=== PATIENT | male | born 1955 | race Caucasian/White ===

== ENCOUNTER 2020-01-29 10:48 | Emergency (ER) | payer MEDICARE, BC ==
[2020-01-29] MEDS ORDERED: Iopamidol 612 MG/ML 50 ML SDV IVPUSH ONE (10:57)
[2020-01-29] MEDS ORDERED: Iopamidol 612 MG/ML 100 ML Bottle IVPUSH ONE (10:57)
[2020-01-29] MEDS ORDERED: Lactated Ringers 1,000 ML IV ONE (11:03)
[2020-01-29] MEDS ORDERED: Ondansetron 4 MG/2 ML SDV IVPUSH ONE (11:03)
[2020-01-29] MEDS ORDERED: fentaNYL 100 MCG/2 ML SDV IVPUSH ONE ×2 (11:05→12:12)
[2020-01-29] MEDS ORDERED: methylPREDNISolone Sodium Succinate 40 MG/1 ML SDV ONE (11:16)
[2020-01-29] MEDS ORDERED: Famotidine 20 MG/2 ML SDV ONE ×2 (11:16→11:19)
[2020-01-29] MEDS ORDERED: diphenhydrAMINE 50 MG/ML SDV ONE (11:16)
[2020-01-29] MEDS ORDERED: methylPREDNISolone Sodium Succinate 125 MG/2 ML SDV ONE (11:16)
[2020-01-29] MEDS ORDERED: diphenhydrAMINE 50 MG/ML SDV IVPUSH ONE (11:18)
[2020-01-29] MEDS ORDERED: methylPREDNISolone Sodium Succinate 125 MG/2 ML SDV IVPUSH ONE (11:19)
[2020-01-29] MEDS ORDERED: Famotidine 20 MG/2 ML SDV IVPUSH ONE (11:20)
--- NOTE | 2020-01-29 11:59 | CT ---
CT chest Technique: Multiple axial sections were obtained from above the lung apices inferiorly through the lung bases. Intravenous contrast was utilized. Reconstructed coronal and sagittal images were obtained. Comparison: No prior chest imaging is available. Findings: Mediastinum and hilar regions appeared normal. Aorta shows no aneurysm. No mediastinal hematoma is seen. No mediastinal adenopathy is seen. No pericardial thickening is appreciated. Lungs are clear with no acute parenchymal change. No pulmonary contusion or pleural effusions are seen. No pneumothorax is appreciated. Bone window settings were reviewed which shows mild degenerative change within the thoracic spine. No acute osseous finding is appreciated. Impression: 1. Findings as noted above. 2. Nothing acute is appreciated on CT study of the chest. Diagnostic code #2 CT abdomen and pelvis Technique: Multiple axial sections were obtained from above the dome of the diaphragm inferiorly through the pubic symphysis. Intravenous contrast was utilized. No oral contrast has been given. Comparison: Previous CT abdomen and pelvis exam of 08/01/10. Findings: Liver contains no focal abnormality. Spleen appears within normal limits. Adrenal glands show no nodule. Gallbladder contains no calcified gallstones. Kidneys show symmetric contrast enhancement. Small cyst is noted within the right kidney. Pancreas appears within normal limits. Aorta shows atherosclerotic calcification without aneurysm. No retroperitoneal adenopathy or mesenteric abnormalities are seen. No pelvic mass or adenopathy is noted. Artifact is noted within the pelvis from bilateral hip prosthesis. No free fluid or inflammatory change is seen. Mild diverticuli are seen within the descending colon and sigmoid colon without inflammatory change of diverticulitis. Appendix is seen which is normal in size. Delayed images were obtained through the bladder. Contrast is noted within both distal ureters and bladder. Bone window settings were reviewed. Scattered degenerative change is noted throughout the lumbar spine. No discrete fracture is seen within the lumbar spine or within the pelvis. Impression: 1. Findings believed to be incidental as noted above. 2. Nothing acute is seen. Diagnostic code #2 This report was dictated in MDT
--- NOTE | 2020-01-29 13:01 | EDM.PDOC ---
ED HPI GENERAL MEDICAL PROBLEM - General Chief Complaint: Trauma Stated Complaint: RIB INJURY Time Seen by Provider: 01/29/20 10:48 - History of Present Illness INITIAL COMMENTS - FREE TEXT/NARRATIVE: 64-year-old male brought in by private car after getting pinned between a stock trailer and a cattle gate. Patient states he was standing behind a trailer the backed up and pinned him up against a cattle gate. His lower chest caught most of the impact. He denies any trauma to his lower extremities denies abdominal pain and did not hit his head or neck. Past medical history significant for hypertension. Patient denies any nausea vomiting. It hurts if he takes a deep breath. Patient denies any other complaints at this time but his chest wall pain is very uncomfortable. Upper Chest Pain Score (Numeric/FACES): 8 - Related Data Allergies Allergy/AdvReac Type Severity Reaction Status Date / Time aspirin Allergy Hives, Verified 02/13/18 07:55 skin rashes ibuprofen Allergy Hives, Verified 02/13/18 07:53 skin rashes piroxicam [From Feldene] Allergy Hives, Verified 02/13/18 08:10 skin rashes shellfish derived Allergy Airway Verified 01/29/20 11:35 Tightness Home Meds: Home Meds diazePAM [Valium] 5 - 10 mg PO BEDTIME #20 tab 01/29/20 [Rx] Past Medical History HEENT History: Reports: Hard of Hearing Other HEENT History: Bilat Hearing aides Cardiovascular History: Reports: Hypertension Musculoskeletal History: Reports: Back Pain, Chronic - Past Surgical History HEENT Surgical History: Reports: Naso-Sinus Surgery Musculoskeletal Surgical History: Reports: Hip Replacement, Other (See Below) Other Musculoskeletal Surgeries/Procedures:: Bilat hip replacements, low back surgery Social & Family History - Tobacco Use Smoking Status *Q: Never Smoker - Caffeine Use Caffeine Use: Reports: Coffee - Recreational Drug Use Recreational Drug Use: No Review of Systems - Review of Systems Review Of Systems: See Below Constitutional: Reports: No Symptoms Eyes: Reports: No Symptoms Ears: Reports: No Symptoms Nose: Reports: No Symptoms Mouth/Throat: Reports: No Symptoms Respiratory: Reports: Other (He denies shortness of breath but it hurts if he takes a deep breath.) Cardiovascular: Reports: Chest Pain. Denies: No Symptoms, Edema, Irregular Heart Rate, Lightheadedness, Palpitations, Syncope, Other GI/Abdominal: Reports: No Symptoms Genitourinary: Reports: No Symptoms Musculoskeletal: Reports: Other (Chest wall pain) Skin: Reports: No Symptoms Neurological: Reports: No Symptoms ED EXAM, GENERAL - Physical Exam Exam: See Below Exam Limited By: No Limitations General Appearance: Alert, Moderate Distress (From the discomfort) Eye Exam: Bilateral Eye: Normal Inspection Ears: Normal External Exam, Normal Canal, Hearing Grossly Normal, Normal TMs Nose: Normal Inspection, Normal Mucosa, No Blood Throat/Mouth: Normal Inspection, Normal Lips, Normal Teeth, Normal Gums, Normal Oropharynx, Normal Voice, No Airway Compromise Head: Atraumatic, Normocephalic Neck: Normal Inspection, Supple, Non-Tender, Full Range of Motion. No: Limited Range of Motion, Lymphadenopathy (L), Lymphadenopathy (R), Tender Lateral, Tender Midline, Thyromegaly Respiratory/Chest: No Respiratory Distress, Lungs Clear, Normal Breath Sounds, Other (Patient has some anterior chest wall discomfort worse on the left. Palpation of the sternum is minimally tender lower ribs on the left are quite tender) Cardiovascular: Normal Peripheral Pulses, Regular Rate, Rhythm, No Edema GI/Abdominal: Normal Bowel Sounds, Soft, Non-Tender Back Exam: Normal Inspection. No: CVA Tenderness (L), CVA Tenderness (R), Paraspinal Tenderness, Vertebral Tenderness Extremities: Normal Inspection, Normal Range of Motion, Non-Tender, No Pedal Edema Neurological: Alert, Oriented, Normal Cognition, Other (Generalized muscle testing is normal in all 4 extremities) Skin Exam: Warm, Dry, Intact Lymphatic: No Adenopathy Course - Vital Signs Last Recorded V/S: Last Vital Signs Temp 36.5 C 01/29/20 12:25 Pulse 79 01/29/20 14:24 Resp 16 01/29/20 14:24 BP 146/83 H 01/29/20 14:24 Pulse Ox 97 01/29/20 14:24 - Orders/Labs/Meds Orders: Active Orders 24 hr Category Date Time Status EKG 12 Lead [EKG Documentation Completion] [RC] STAT Care 01/29/20 12:47 Active PATIENT RETYPE [BBK] Routine Lab 01/29/20 11:56 Ordered EKG 12 Lead [EK] Stat Ther 01/29/20 12:41 Ordered Labs: Laboratory Tests 01/29/20 01/29/20 01/29/20 Range/Units 10:55 10:55 10:55 WBC 6.36 (4.23-9.07) K/mm3 RBC 5.56 (4.63-6.08) M/mm3 Hgb 16.8 (13.7-17.5) gm/dl Hct 48.6 (40.1-51.0) % MCV 87.4 (79.0-92.2) fl MCH 30.2 (25.7-32.2) pg MCHC 34.6 (32.2-35.5) g/dl RDW Std Deviation 39.8 (35.1-43.9) fL Plt Count 234 (163-337) K/mm3 MPV 10.0 (9.4-12.3) fl Neut % (Auto) 62.4 (34.0-67.9) % Lymph % (Auto) 24.4 (21.8-53.1) % [place] % (Auto) 9.6 (5.3-12.2) % Eos % (Auto) 2.4 (0.8-7.0) Baso % (Auto) 0.6 (0.1-1.2) % Neut # (Auto) 3.97 (1.78-5.38) K/mm3 Lymph # (Auto) 1.55 (1.32-3.57) K/mm3 [place] # (Auto) 0.61 (0.30-0.82) K/mm3 Eos # (Auto) 0.15 (0.04-0.54) K/mm3 Baso # (Auto) 0.04 (0.01-0.08) K/mm3 PT 10.5 (9.7-12.0) SECONDS INR 0.96 APTT 24 (22-31) SECONDS Sodium 142 (136-145) mEq/L Potassium 3.7 (3.5-5.1) mEq/L Chloride 103 (98-107) mEq/L Carbon Dioxide 27 (21-32) mEq/L Anion Gap 15.7 H (5-15) BUN 13 (7-18) mg/dL Creatinine 0.9 (0.7-1.3) mg/dL Est Cr Clr Drug Dosing TNP Estimated GFR (MDRD) > 60 (>60) mL/min BUN/Creatinine Ratio 14.4 (14-18) Glucose 116 H (80-115) mg/dL Lactic Acid (0.4-2.0) mmol/L Calcium 10.1 (8.5-10.1) mg/dL Total Bilirubin 0.7 (0.2-1.0) mg/dL AST 25 (15-37) U/L ALT 33 (16-63) U/L Alkaline Phosphatase 63 (46-116) U/L Troponin I (0.00-0.056) ng/mL Total Protein 7.6 (6.4-8.2) g/dl Albumin 4.0 (3.4-5.0) g/dl Globulin 3.6 gm/dL Albumin/Globulin Ratio 1.1 (1-2) Amylase 90 (25-115) U/L Urine Color (Yellow) Urine Appearance (Clear) Urine pH (5.0-8.0) Ur Specific [place] (1.005-1.030) Urine Protein (Negative) Urine Glucose (UA) (Negative) Urine Ketones (Negative) Urine Occult Blood (Negative) Urine Nitrite (Negative) Urine Bilirubin (Negative) Urine Urobilinogen (0.2-1.0) Ur Leukocyte Esterase (Negative) Blood Type Gel Antibody Screen 01/29/20 01/29/20 01/29/20 Range/Units 10:55 10:55 10:55 WBC (4.23-9.07) K/mm3 RBC (4.63-6.08) M/mm3 Hgb (13.7-17.5) gm/dl Hct (40.1-51.0) % MCV (79.0-92.2) fl MCH (25.7-32.2) pg MCHC (32.2-35.5) g/dl RDW Std Deviation (35.1-43.9) fL Plt Count (163-337) K/mm3 MPV (9.4-12.3) fl Neut % (Auto) (34.0-67.9) % Lymph % (Auto) (21.8-53.1) % [place] % (Auto) (5.3-12.2) % Eos % (Auto) (0.8-7.0) Baso % (Auto) (0.1-1.2) % Neut # (Auto) (1.78-5.38) K/mm3 Lymph # (Auto) (1.32-3.57) K/mm3 [place] # (Auto) (0.30-0.82) K/mm3 Eos # (Auto) (0.04-0.54) K/mm3 Baso # (Auto) (0.01-0.08) K/mm3 PT (9.7-12.0) SECONDS INR APTT (22-31) SECONDS Sodium (136-145) mEq/L Potassium (3.5-5.1) mEq/L Chloride (98-107) mEq/L Carbon Dioxide (21-32) mEq/L Anion Gap (5-15) BUN (7-18) mg/dL Creatinine (0.7-1.3) mg/dL Est Cr Clr Drug Dosing Estimated GFR (MDRD) (>60) mL/min BUN/Creatinine Ratio (14-18) Glucose (80-115) mg/dL Lactic Acid 1.3 (0.4-2.0) mmol/L Calcium (8.5-10.1) mg/dL Total Bilirubin (0.2-1.0) mg/dL AST (15-37) U/L ALT (16-63) U/L Alkaline Phosphatase (46-116) U/L Troponin I < 0.017 (0.00-0.056) ng/mL Total Protein (6.4-8.2) g/dl Albumin (3.4-5.0) g/dl Globulin gm/dL Albumin/Globulin Ratio (1-2) Amylase (25-115) U/L Urine Color (Yellow) Urine Appearance (Clear) Urine pH (5.0-8.0) Ur Specific [place] (1.005-1.030) Urine Protein (Negative) Urine Glucose (UA) (Negative) Urine Ketones (Negative) Urine Occult Blood (Negative) Urine Nitrite (Negative) Urine Bilirubin (Negative) Urine Urobilinogen (0.2-1.0) Ur Leukocyte Esterase (Negative) Blood Type A POSITIVE Gel Antibody Screen Negative 01/29/20 Range/Units 12:34 WBC (4.23-9.07) K/mm3 RBC (4.63-6.08) M/mm3 Hgb (13.7-17.5) gm/dl Hct (40.1-51.0) % MCV (79.0-92.2) fl MCH (25.7-32.2) pg MCHC (32.2-35.5) g/dl RDW Std Deviation (35.1-43.9) fL Plt Count (163-337) K/mm3 MPV (9.4-12.3) fl Neut % (Auto) (34.0-67.9) % Lymph % (Auto) (21.8-53.1) % [place] % (Auto) (5.3-12.2) % Eos % (Auto) (0.8-7.0) Baso % (Auto) (0.1-1.2) % Neut # (Auto) (1.78-5.38) K/mm3 Lymph # (Auto) (1.32-3.57) K/mm3 [place] # (Auto) (0.30-0.82) K/mm3 Eos # (Auto) (0.04-0.54) K/mm3 Baso # (Auto) (0.01-0.08) K/mm3 PT (9.7-12.0) SECONDS INR APTT (22-31) SECONDS Sodium (136-145) mEq/L Potassium (3.5-5.1) mEq/L Chloride (98-107) mEq/L Carbon Dioxide (21-32) mEq/L Anion Gap (5-15) BUN (7-18) mg/dL Creatinine (0.7-1.3) mg/dL Est Cr Clr Drug Dosing Estimated GFR (MDRD) (>60) mL/min BUN/Creatinine Ratio (14-18) Glucose (80-115) mg/dL Lactic Acid (0.4-2.0) mmol/L Calcium (8.5-10.1) mg/dL Total Bilirubin (0.2-1.0) mg/dL AST (15-37) U/L ALT (16-63) U/L Alkaline Phosphatase (46-116) U/L Troponin I (0.00-0.056) ng/mL Total Protein (6.4-8.2) g/dl Albumin (3.4-5.0) g/dl Globulin gm/dL Albumin/Globulin Ratio (1-2) Amylase (25-115) U/L Urine Color Yellow (Yellow) Urine Appearance Clear (Clear) Urine pH 7.5 (5.0-8.0) Ur Specific [place] 1.015 (1.005-1.030) Urine Protein Negative (Negative) Urine Glucose (UA) Negative (Negative) Urine Ketones Negative (Negative) Urine Occult Blood Negative (Negative) Urine Nitrite Negative (Negative) Urine Bilirubin Negative (Negative) Urine Urobilinogen 0.2 (0.2-1.0) Ur Leukocyte Esterase Negative (Negative) Blood Type Gel Antibody Screen Meds: Medications Discontinued Medications Generic Name Dose Route Start Last Admin Trade Name Freq PRN Reason Stop Dose Admin Diphenhydramine HCl Confirm 01/29/20 11:16 01/29/20 11:20 Benadryl Administered 01/29/20 11:17 Not Given Dose 50 mg .ROUTE .STK-MED ONE Diphenhydramine HCl 50 mg 01/29/20 11:18 01/29/20 11:20 Benadryl IVPUSH 01/29/20 11:19 50 mg ONETIME ONE Administration Famotidine Confirm 01/29/20 11:16 01/29/20 11:20 Pepcid Administered 01/29/20 11:17 Not Given Dose 20 mg .ROUTE .STK-MED ONE Famotidine Confirm 01/29/20 11:19 01/29/20 11:21 Pepcid Administered 01/29/20 11:20 Not Given Dose 20 mg .ROUTE .STK-MED ONE Famotidine 40 mg 01/29/20 11:20 01/29/20 11:25 Pepcid IVPUSH 01/29/20 11:21 40 mg ONETIME ONE Administration Fentanyl 50 mcg 01/29/20 11:05 01/29/20 11:09 Sublimaze IVPUSH 01/29/20 11:06 50 mcg ONETIME ONE Administration Fentanyl 50 mcg 01/29/20 12:12 01/29/20 12:18 Sublimaze IVPUSH 01/29/20 12:13 50 mcg ONETIME ONE Administration Lactated Ringer's 1,000 mls @ 999 mls/hr 01/29/20 11:03 01/29/20 11:08 Ringers, Lactated IV 01/29/20 12:03 999 mls/hr .BOLUS ONE Administration Iopamidol 50 ml 01/29/20 10:57 01/29/20 11:33 Isovue-300 (61%) IVPUSH 01/29/20 10:58 25 ml ONETIME ONE Administration Iopamidol 100 ml 01/29/20 10:57 01/29/20 11:33 Isovue-300 (61%) IVPUSH 01/29/20 10:58 100 ml ONETIME ONE Administration Methylprednisolone Sodium Succinate Confirm 01/29/20 11:16 01/29/20 11:20 Solu-Medrol Administered 01/29/20 11:17 Not Given Dose 40 mg .ROUTE .STK-MED ONE Methylprednisolone Sodium Succinate Confirm 01/29/20 11:16 01/29/20 11:20 Solu-Medrol Administered 01/29/20 11:17 Not Given Dose 125 mg .ROUTE .STK-MED ONE Methylprednisolone Sodium Succinate 125 mg 01/29/20 11:19 01/29/20 11:25 Solu-Medrol IVPUSH 01/29/20 11:20 125 mg ONETIME ONE Administration Ondansetron HCl 4 mg 01/29/20 11:03 01/29/20 11:08 Zofran IVPUSH 01/29/20 11:04 4 mg ONETIME ONE Administration - Re-Assessments/Exams Free Text/Narrative Re-Assessment/Exam: 01/29/20 14:31 Patient was brought into trauma room to primary survey was unrevealing secondary survey revealed some discomfort in the left anterior chest abdominal exam was unremarkable. No other significant abnormalities really appreciated he is developing some ecchymosis underneath the left breast. Labs were ordered basically unrevealing at this point the patient had a liter of LR given and he is voiding adequately. Chest abdomen pelvis CT was negative for any acute changes. I did discuss situation with Dr. Castellanos, trauma surgeon station tender, and she will follow-up with the patient on Saturday at 915. As far as pain control the patient does not do well on oral opioids and really does not want them he would like some Valium as this helps him relax at night. I have discussed this with the patient's and she is comfortable with this as well. 01/29/20 14:43 Was delayed in getting him discharged as I was dealing with critical patients in the department. Departure - Departure Time of Disposition: 14:34 Disposition: Home, Self-Care 01 Clinical Impression: Chest wall contusion - Discharge Information Prescriptions: diazePAM [Valium] 5 - 10 mg PO BEDTIME #20 tab Instructions: Contusion, [id number] Referrals: Hector Mitchell MD [Primary Care Provider] - Forms: ED Department Discharge Additional Instructions: Appointment with Dr Castellanos at 915 [address] MST on [address] [facility] to the emergency room with any questions problems or worsening symptoms. Use Tylenol 650 mg every 4-6 hours as needed for pain. Do not exceed 4000 mg in a 24-hour period. You have been given a prescription for Valium take 1 or 2 before bedtime nightly so you can get some rest. Do your deep breathing exercises as we discussed 3 maximal breaths in then hold for a few seconds then slowly let it out do this at least every 2 hours while you are awake. Sepsis Event Note - Evaluation Sepsis Screening Result: No Definite Risk - Focused Exam Vital Signs: Vital Signs Temp Pulse Resp BP Pulse Ox 01/29/20 14:24 79 16 146/83 H 97 01/29/20 12:25 36.5 C 75 18 139/80 94 L 01/29/20 11:00 36.8 C 69 18 139/92 H 97 01/29/20 10:50 36.8 C 84 24 H 154/96 H 98 Date Exam was Performed: 01/29/20 Time Exam was Performed: 19:33 - My Orders Last 24 Hours: My Active Orders 01/29/20 11:56 PATIENT RETYPE [BBK] Routine 01/29/20 12:41 EKG 12 Lead [EK] Stat 01/29/20 12:47 EKG 12 Lead [EKG Documentation Completion] [RC] STAT - Assessment/Plan Last 24 Hours: My Active Orders 01/29/20 11:56 PATIENT RETYPE [BBK] Routine 01/29/20 12:41 EKG 12 Lead [EK] Stat 01/29/20 12:47 EKG 12 Lead [EKG Documentation Completion] [RC] STAT
== END 2020-01-29 15:22 | disposition home or self-care (01) ==
LOC: JD.ED 10:48
DX: S20.212A Contusion of left front wall of thorax, initial encounter (principal); I10 Essential (primary) hypertension; Z88.6 Allergy status to analgesic agent; Z91.013 Allergy to seafood; Z88.8 Allergy status to other drugs, medicaments and biological substances; V49.9XXA Car occupant (driver) (passenger) injured in unspecified traffic accident, initial encounter
CPT/HCPCS: 36415; 71260; 74177; 80053; 81003; 82150; 83605; 84484; 85025; 85610; 85730; 86850; 86900; 86901; 93005; 96374; 96375; 96376; 99285; J1200; J2405; J2930; J3010; J3490; J7120; Q9967